=== PATIENT | male | born 1980 | race Caucasian/White ===

== ENCOUNTER 2017-05-24 21:46 | Emergency (ER) | payer OTHER | END 2017-05-24 22:57 | disposition home or self-care (01) | LOC: D.ER 21:46 | DX: K02.9 Dental caries, unspecified (principal); K08.89 Other specified disorders of teeth and supporting structures ==

== ENCOUNTER 2019-06-27 21:54 | Emergency (ER) | payer OTHER ==
[~2019-06-27] VITALS: Ht 175.3 cm; Wt 75.0 kg
[2019-06-27 22:00] VITALS: Ht 175.3 cm; Wt 75.0 kg
[2019-06-27] MEDS ORDERED: HYDROCODON-ACE1 EA10 PO (23:35)
[2019-06-28 00:05] VITALS: BP 150/103
== END 2019-06-28 00:05 | disposition home or self-care (01) ==
LOC: D.ER 21:54
DX: S62.630B Displaced fracture of distal phalanx of right index finger, initial encounter for open fracture (principal); X58.XXXA Exposure to other specified factors, initial encounter; Y92.009 Unspecified place in unspecified non-institutional (private) residence as the place of occurrence of the external cause; S60.021A Contusion of right index finger without damage to nail, initial encounter; G89.29 Other chronic pain; M54.9 Dorsalgia, unspecified

== ENCOUNTER 2020-05-23 18:18 | Emergency (ER) | payer OTHER ==
[2019-06-27 22:00] VITALS: BMI 24.4
[~2020-05-23 18:18] MED LIST: HYDROCODON-ACE1 EA10 PO
== END 2020-05-23 19:58 | disposition left against medical advice (07) ==
LOC: D.ER 18:18
DX: R06.02 Shortness of breath (principal); R50.9 Fever, unspecified

== ENCOUNTER 2021-02-13 04:20 | Emergency (ER) | payer OTHER ==
[~2021-02-13] VITALS: Ht 175.3 cm; Wt 75.0 kg
[2021-02-13 04:25] VITALS: Ht 175.3 cm; Wt 75.0 kg
[2021-02-13 05:11] LABS: HEMOGLOBIN 15.2 g/dL (13.5-17.5); MCH 32.9 pg (26.0-34.0); MCHC 34.6 g/dL (31.0-37.0); PLATELET COUNT 259 10x3/uL (130-400); RBC 4.63 10x6/uL (4.20-6.10); WBC 15.4 10x3/uL (4.8-10.8)
[2021-02-13 05:19] LABS: CALC OSMOLALITY 280 mosm/kg (275-300); CALCIUM 8.8 mg/dL (8.5-10.1); CARBON DIOXIDE 30.2 mmol/L (21.0-32.0); CHLORIDE - SERUM 104 mmol/L (98-107); GLUCOSE 92 mg/dL (74-106); POTASSIUM - SERUM 3.5 mmol/L (3.5-5.1); SODIUM 141 mmol/L (136-145); UREA NITROGEN 12 mg/dL (7-18); eGFR NON AFRICAN AMERICAN 87 mL/min (90-120)
[2021-02-13 05:30] LABS: SARS-CoV-2 ANTIGEN NEGATIVE- SARS-COV-2 (NEGATIVE)
[2021-02-13 05:36] LABS: ALBUMIN 3.7 g/dL (3.4-5.0); ALKALINE PHOSPHATASE 110 U/L (30-120); ALT (SGPT) 39 U/L (10-68); AMYLASE - SERUM 29 U/L (25-115); BILIRUBIN - TOTAL 0.38 mg/dL (0.2-1.3); CKMB 3.2 U/L (0.0-3.6); LIPASE 147 U/L (73-393); PROTEIN - SERUM 7.1 g/dL (6.4-8.2); TROPONIN-I < 0.017 ng/mL (0.000-0.060)
[2021-02-13 05:37] LABS: CREATINE KINASE 961 UL (21-232)
[2021-02-13 05:40] LABS: EOSINOPHILS 40 % (0-7); LYMPHOCYTES 26 % (15-50); MONOCYTES 1 % (2-11); NEUTROPHILS 33 % (40-80); PLATELET ESTIMATE NORMAL
[2021-02-13 06:03] LABS: BILIRUBIN NEGATIVE (NEGATIVE); KETONE NEGATIVE mg/dL (< 1+); NITRITE NEGATIVE (NEGATIVE); PH 6.5 (5.0-8.0); SQUAMOUS EPITHELIAL 1 HPF (0-4); UROBILINOGEN NORMAL mg/dL (< 2); WHITE CELLS - URINE 3 HPF (0-1)
[2021-02-13 06:11] LABS: UDS - AMPHET POSITIVE QUAL (NEGATIVE); UDS - BARB NEGATIVE QUAL (NEGATIVE); UDS - BENZO NEGATIVE QUAL (NEGATIVE); UDS - COCAINE NEGATIVE QUAL (NEGATIVE); UDS - OPIATE NEGATIVE QUAL (NEGATIVE); UDS - PCP NEGATIVE QUAL (NEGATIVE); UDS - THC NEGATIVE QUAL (NEGATIVE)
[2021-02-13] MEDS ORDERED: GUAIFEN-CODEINE10 ML PO (08:19)
[2021-02-13 08:30] VITALS: BP 124/88
== END 2021-02-13 08:31 | disposition home or self-care (01) ==
LOC: D.ER 04:20
PROVIDERS: Emergency Medicine
DX: R05 Cough (principal); S39.012A Strain of muscle, fascia and tendon of lower back, initial encounter; X58.XXXA Exposure to other specified factors, initial encounter